=== PATIENT | female | born 1990 | race Caucasian/White ===

== ENCOUNTER 2017-01-16 15:59 | Emergency (ER) | payer BC ==
[2017-01-16 16:16] VITALS: BP 130/82
[2017-01-16] MEDS ORDERED: Acetaminophen TAB* 325 MG PO ONE (16:37)
--- NOTE | 2017-01-16 17:01 | UC ---
FLU HPI - HPI Summary HPI Summary: YESTERDAY BEGAN HAVING FEVER CHILLS BODY ACHES, SINUS CONGESTION FATIGUE - History of Current Complaint Chief Complaint: UCRespiratory Stated Complaint: COUGH,CONGESTION Time Seen by Provider: 01/16/17 16:18 Hx Obtained From: Patient, Family/[employer]inter Hx Last Menstrual Period: 01/08/17 Onset/Duration: Sudden Onset, Lasting Days, Still Present Severity Currently: Mild Severity Initially: Mild Associated Signs & Symptoms: Positive: Fever, T Max, Myalgia, Cough, Nasal Congestion - Allergy/Home Medications Allergies/Adverse Reactions: Allergies Allergy/AdvReac Type Severity Reaction Status Date / Time Sulfa Antibiotics Allergy Severe Anaphylatic Verified 01/16/17 16:08 Shock Home Medications: Home Medications Ibuprofen TAB* [Advil TAB*] 400 mg PO Q6H PRN 01/16/17 [History Confirmed ] PMH/Surg Hx/FS Hx/Imm Hx Previously Healthy: Yes Respiratory History Of: Reports: Asthma - HX A CHILD - Surgical History Surgical History: Yes Surgery Procedure, Year, and Place: t/a, 5 ear surgeries between right and left, - Family History Known Family History: Positive: Hypertension - Social History Occupation: Employed Full-time Lives: With Family Alcohol Use: None Substance Use Type: Marijuana Substance Use Comment - Amount & Last Used: OCCASIONAL Smoking Status (MU): Heavy Every Day Tobacco Smoker Type: Cigarettes Amount Used/How Often: 1/2 ppd Length of Time of Smoking/Using Tobacco: 3 year Have You Smoked in the Last Year: Yes Household Exposure Type: Cigarettes Cessation Counseling: Counseled 3+Min - 10 Min - Immunization History Most Recent Influenza Vaccination: FALL 2015 Review of Systems Constitutional: Fever, Chills, Fatigue Skin: Negative Eyes: Negative ENT: Sore Throat, Nasal Discharge Respiratory: Cough Cardiovascular: Negative Genitourinary: Negative Motor: Negative Neurovascular: Negative Musculoskeletal: Myalgia Neurological: Negative Psychological: Negative All Other Systems Reviewed And Are Negative: Yes Physical Exam Triage Information Reviewed: Yes Appearance: No Pain Distress, Well-Nourished, Ill-Appearing Vital Signs: Initial Vital Signs Temp 102.4 F 01/16/17 16:09 Pulse 97 01/16/17 16:09 Resp 20 01/16/17 16:09 BP 130/82 01/16/17 16:09 Pulse Ox 130 01/16/17 16:09 Vital Signs Reviewed: Yes ENT: Positive: Normal ENT inspection, Hearing grossly normal, Pharynx normal, TM dull Dental Exam: Normal Neck exam: Normal Neck: Positive: Supple, Nontender Respiratory Exam: Normal Respiratory: Positive: Chest non-tender, Lungs clear, Normal breath sounds, No respiratory distress, No accessory muscle use Cardiovascular Exam: Normal Cardiovascular: Positive: RRR, No Murmur Abdominal Exam: Normal Abdomen Description: Positive: Nontender, No Organomegaly Musculoskeletal Exam: Normal Musculoskeletal: Positive: Strength Intact, ROM Intact Neurological Exam: Normal Psychological Exam: Normal Psychological: Positive: Normal Response To Family Skin Exam: Normal Flu Course/Dx - Differential Dx/Diagnosis Differential Diagnosis/HQI/PQRI: Upper Respiratory Infection Provider Diagnoses: INFLUENZA Discharge - Discharge Plan Condition: Stable Disposition: HOME Prescriptions: Oseltamivir CAP* [Tamiflu CAP*] 75 mg PO BID #10 cap Patient Education Materials: Influenza (ED) Forms: *Work Release Referrals: [facility] [Outside] No Primary Care Phys,NOPCP [Primary Care Provider] -
== END 2017-01-16 17:03 | disposition home or self-care (01) ==
LOC: UCCORT 15:59
DX: J11.1 Influenza due to unidentified influenza virus with other respiratory manifestations (principal); Z88.2 Allergy status to sulfonamides; F17.210 Nicotine dependence, cigarettes, uncomplicated; Z71.6 Tobacco abuse counseling
CPT/HCPCS: 87502; 99212; A9270-GY; G0463

== ENCOUNTER 2018-03-02 08:58 | Emergency (ER) | payer BC, OTHER ==
[2018-03-02 10:27] VITALS: BP 120/83
--- NOTE | 2018-03-02 11:02 | RAD ---
INDICATION: Right ankle injury. TECHNIQUE: 3 views of the right ankle were obtained. FINDINGS: Soft tissue swelling is noted along the anterolateral aspect of the ankle. No fracture is seen. Joint spaces appear maintained. IMPRESSION: SOFT TISSUE SWELLING, NO FRACTURE IS SEEN.
--- NOTE | 2018-03-02 11:04 | RAD ---
INDICATION: Right foot injury. TECHNIQUE: 3 views of the right foot were obtained. FINDINGS: There is lateral soft tissue swelling. The bones are normal alignment. No fracture is seen. Joint spaces appear maintained. IMPRESSION: SOFT TISSUE SWELLING, NO FRACTURE IS SEEN. IF THE PATIENT'S SYMPTOMS PERSIST RECOMMEND FOLLOW-UP IMAGING.
[2018-03-02] MEDS ORDERED: Acetaminophen TAB* 325 MG PO ONE (11:22)
--- NOTE | 2018-03-02 11:24 | UC ---
Lower Extremity/Ankle HPI - HPI Summary HPI Summary: ROLLED r ANKLE ON UNEVEN SIDEWALK 3 DAYS AGO. C/O PAIN TO ANKLE AND SWELLING TO ANKLE AND FOOT. - History of Current Complaint Chief Complaint: UCLowerExtremity Stated Complaint: RT FOOT INJURY Time Seen by Provider: 03/02/18 11:18 Hx Obtained From: Patient Hx Last Menstrual Period: beinning of January Onset/Duration: Sudden Onset Pain Intensity: 0 Aggravating Factor(s): Standing, Ambulation Alleviating Factor(s): Rest Able to Bear Weight: Yes - Risk Factors Septic Arthritis Risk Factor: Negative - Allergies/Home Medications Allergies/Adverse Reactions: Allergies Allergy/AdvReac Type Severity Reaction Status Date / Time Sulfa (Sulfonamide Allergy Swelling Verified 03/02/18 10:28 Antibiotics) Of Face,Lips,& Throat PMH/Surg Hx/FS Hx/Imm Hx Previously Healthy: Yes - Surgical History Surgical History: Yes Surgery Procedure, Year, and Place: t/a, 5 ear surgeries between right and left, - Family History Known Family History: Positive: Hypertension - Social History Occupation: Unemployed Lives: With Family Alcohol Use: Occasionally Substance Use Type: Marijuana Substance Use Comment - Amount & Last Used: OCCASIONAL-last use one month ago Smoking Status (MU): Light Every Day Tobacco Smoker Type: Cigarettes Amount Used/How Often: 1/2 ppd Length of Time of Smoking/Using Tobacco: 3 year Have You Smoked in the Last Year: Yes Household Exposure Type: Cigarettes - Immunization History Most Recent Influenza Vaccination: FALL 2015 Vaccination Up to Date: Yes Review of Systems Constitutional: Negative Skin: Negative Eyes: Negative ENT: Negative Respiratory: Negative Cardiovascular: Negative Gastrointestinal: Negative Genitourinary: Negative Motor: Negative Neurovascular: Negative Musculoskeletal: Other: - pIAN r ANKLE, SWELLING r ANKLE/FOOT Neurological: Negative Psychological: Negative Is Patient Immunocompromised?: No All Other Systems Reviewed And Are Negative: Yes Physical Exam Triage Information Reviewed: Yes Appearance: Well-Appearing Vital Signs: Initial Vital Signs Temp 98.4 F 03/02/18 10:14 Pulse 78 03/02/18 10:14 Resp 18 03/02/18 10:14 BP 120/83 03/02/18 10:14 Pulse Ox 100 03/02/18 10:14 Eyes: Positive: Conjunctiva Clear ENT: Positive: Normal ENT inspection Neck: Positive: Supple, Nontender, No Lymphadenopathy Respiratory: Positive: Lungs clear, Normal breath sounds Cardiovascular: Positive: RRR, No Murmur Abdomen Description: Positive: Nontender, No Organomegaly, Soft Bowel Sounds: Positive: Present Musculoskeletal: Positive: Other: - RLE: hip, knee, achilles are atraumatic. lateral ankle with mild swelling and tenderness. foot with mild swelling but non tender and gross s/v/m to foot is intact. Neurological: Positive: Alert Psychological: Positive: Age Appropriate Behavior Skin Exam: Normal Diagnostics - Radiology No standard instances Xray Interpretation: Positive (See Comments) - sts but no fx's(see reports) Radiology Interpretation Completed By: Radiologist Lower Extremity Course/Dx - Course Course Of Treatment: no fx's, dislocations or concern for infection - Differential Dx/Diagnosis Provider Diagnoses: Sprain R ankle Discharge - Sign-Out/Discharge Documenting (check all that apply): Discharge/Admit/Transfer - Discharge Plan Condition: Stable Disposition: HOME Patient Education Materials: Ankle Sprain (ED) Referrals: Rocky Moon MD [Medical Doctor] - 7 Days Additional Instructions: LIO, SPLINT AND USE YOUR CRUTCHES UNTIL CLEARED. - Billing Disposition and Condition Condition: STABLE Disposition: HOME
== END 2018-03-02 11:38 | disposition home or self-care (01) ==
LOC: UCCORT 08:58
DX: S93.401A Sprain of unspecified ligament of right ankle, initial encounter (principal); X50.0XXA Overexertion from strenuous movement or load, initial encounter; Y92.9 Unspecified place or not applicable; F17.210 Nicotine dependence, cigarettes, uncomplicated; Z88.2 Allergy status to sulfonamides
CPT/HCPCS: 99213; A9270-GY; G0463

== ENCOUNTER 2018-05-01 11:26 | Emergency (ER) | payer MEDICAID, OTHER ==
[2018-05-01 11:33] VITALS: BP 121/86
--- NOTE | 2018-05-01 11:47 | UC ---
Dental HPI - HPI Summary HPI Summary: has broken L lower molar that is painful and now jaw getting swollen. has DDS appoint in [place] next week - History of Current Complaint Chief Complaint: UCDentalProblem Stated Complaint: DENTAL COMPLAINT Time Seen by Provider: 05/01/18 11:45 Hx Obtained From: Patient Hx Last Menstrual Period: beinning of January ?: No Onset/Duration: Gradual Onset Severity: Severe Pain Intensity: 7 Aggravating Factor(s): Heat, Cold, Chewing Alleviating Factor(s): Nothing - Allergies/Home Medications Allergies/Adverse Reactions: Allergies Allergy/AdvReac Type Severity Reaction Status Date / Time Sulfa (Sulfonamide Allergy Swelling Verified 05/01/18 11:33 Antibiotics) Of Face,Lips,& Throat PMH/Surg Hx/FS Hx/Imm Hx Previously Healthy: Yes - Surgical History Surgical History: Yes Surgery Procedure, Year, and Place: t/a, 5 ear surgeries between right and left, - Family History Known Family History: Positive: Hypertension - Social History Occupation: Unemployed Lives: With Family Alcohol Use: Occasionally Substance Use Type: None Substance Use Comment - Amount & Last Used: OCCASIONAL-last use one month ago Smoking Status (MU): Current Some Day Smoker Type: Cigarettes Amount Used/How Often: 1/2 ppd Length of Time of Smoking/Using Tobacco: 3 year Have You Smoked in the Last Year: Yes Household Exposure Type: Cigarettes Cessation Counseling: Patient Advised to Stop - Immunization History Most Recent Influenza Vaccination: FALL 2015 Vaccination Up to Date: Yes Review of Systems Constitutional: Negative ENT: Dental Pain Respiratory: Negative Cardiovascular: Negative Neurological: Negative Psychological: Negative All Other Systems Reviewed And Are Negative: Yes Physical Exam Triage Information Reviewed: Yes Appearance: Well-Appearing, Well-Nourished, Obese Vital Signs: Initial Vital Signs Temp 97.8 F 05/01/18 11:29 Pulse 98 05/01/18 11:29 Resp 18 05/01/18 11:29 BP 121/86 05/01/18 11:29 Pulse Ox 98 05/01/18 11:29 Vital Signs Reviewed: Yes ENT: Positive: Dental tenderness - obvious dental decay L lower molars, minor erythema and swelling gum and cheek, no drainage Dental: Positive: Gross Decay/Caries @ Neck exam: Normal Neck: Positive: Supple, Nontender, No Lymphadenopathy Respiratory Exam: Normal Cardiovascular Exam: Normal Neurological Exam: Normal Psychological Exam: Normal Dental Complaint Course/Dx - Course Course Of Treatment: iStop Reference #: [id number] - Differential Dx/Diagnosis Differential Diagnosis/Dx: Dental Abscess, Dental Caries, Fractured Tooth Provider Diagnoses: dental abscess Discharge - Sign-Out/Discharge Documenting (check all that apply): Discharge/Admit/Transfer - Discharge Plan Condition: Good Disposition: HOME Prescriptions: Ibuprofen TAB* [Motrin TAB* 800 MG] 800 mg PO Q6H #40 tab Penicillin VK TAB* [Penicillin VK 250 mg Tab*] 250 mg PO QID #40 tab Patient Education Materials: Toothache (ED) Referrals: No Primary Care Phys,NOPCP [Primary Care Provider] - Additional Instructions: follow-up with dentist as scheduled next week take medications as directed - Billing Disposition and Condition Condition: GOOD Disposition: Home
== END 2018-05-01 12:06 | disposition home or self-care (01) ==
LOC: UCEAST 11:26
DX: K04.7 Periapical abscess without sinus (principal); F17.210 Nicotine dependence, cigarettes, uncomplicated; Z88.2 Allergy status to sulfonamides
CPT/HCPCS: 99212; G0463

== ENCOUNTER 2020-02-07 09:33 | Emergency (ER) | payer OTHER ==
[2020-02-07 11:01] VITALS: BP 122/82
[2020-02-07] MEDS ORDERED: Naproxen TAB* 250 MG PO ONE (11:02)
--- NOTE | 2020-02-07 11:25 | UC ---
Dental HPI - HPI Summary HPI Summary: 29-year-old female presents with right upper dental pain for approximately one week. States she has attempted to schedule a dentist appointment but has been unsuccessful. States she has developed a "bubble" of the gum at the base of her tooth. Denies fever, chills, facial swelling, drainage, dysphagia, or trismus. - History of Current Complaint Chief Complaint: UCDentalProblem Stated Complaint: DENTAL Time Seen by Provider: 02/07/20 10:42 Hx Obtained From: Patient Hx Last Menstrual Period: 01/31/20 Pain Intensity: 9 - Allergies/Home Medications Allergies/Adverse Reactions: Allergies Allergy/AdvReac Type Severity Reaction Status Date / Time Sulfa (Sulfonamide Allergy Swelling Verified 02/07/20 10:54 Antibiotics) Of Face,Lips,& Throat Home Medications: Home Medications Amoxicillin/Clavulanate TAB* [Augmentin TAB 875*] 875 mg PO BID 10 Days #20 tab 02/07/20 [Rx] Hydrocodone/Acetaminophen [Hydrocodone-Acetamin 5-325 mg] 1 each PO Q8HR PRN #6 tablet MDD 3 02/07/20 [Rx] Ibuprofen TAB* [Motrin TAB* 600 MG] 600 mg PO Q6H PRN #30 tab 02/07/20 [Rx] PMH/Surg Hx/FS Hx/Imm Hx Previously Healthy: Yes - denies significant past medical history Other History Of: Negative For: Anticoagulant Therapy - Surgical History Surgical History: Yes Surgery Procedure, Year, and Place: t/a, 5 ear surgeries between right and left, - Family History Known Family History: Positive: Hypertension - Social History Occupation: Unemployed Lives: With Family Alcohol Use: None Substance Use Type: None Substance Use Comment - Amount & Last Used: OCCASIONAL-last use one month ago (? ) Smoking Status (MU): Current Every Day Smoker Type: Cigarettes Amount Used/How Often: 1/2 PPD Length of Time of Smoking/Using Tobacco: 3 year Have You Smoked in the Last Year: Yes Household Exposure Type: Cigarettes - Immunization History Most Recent Influenza Vaccination: FALL 2015 Vaccination Up to Date: Yes Review of Systems All Other Systems Reviewed And Are Negative: Yes Constitutional: Negative: Fever, Chills ENT: Positive: Dental Pain. Negative: Sore Throat, Nasal Discharge, Sinus Congestion, Sinus Pain/Tenderness Respiratory: Positive: Negative Cardiovascular: Positive: Negative Gastrointestinal: Positive: Negative Genitourinary: Positive: Negative Musculoskeletal: Positive: Negative Neurological/Mental Status: Positive: Negative Is Patient Immunocompromised?: No Physical Exam - Summary Physical Exam Summary: GENERAL APPEARANCE: Alert and cooperative obese adult female who appears to be in no acute distress. HEAD: Atraumatic. Normocephalic. No facial swelling. EYES: Conjunctiva clear. No drainage. EARS: External auditory canals and tympanic membranes clear, hearing grossly intact. NOSE: No nasal discharge. THROAT: Pharynx normal. Tonsils surgically absent. Uvula midline. Teeth and gingiva in overall poor condition with multiple teeth with caries and decay. Significant dental decay of the the right upper 1st molar with dental fracture. Gingival erythema with mild induration at the base of the tooth. No fluctuance, drainage, or trismus. NECK: Neck supple, non-tender without lymphadenopathy. CARDIAC: Normal S1 and S2. No S3, S4 or murmurs. Rhythm is regular. There is no peripheral edema, cyanosis or pallor. Extremities are warm and well perfused. Capillary refill is less than 2 seconds. Peripheral pulses intact. LUNGS: Clear to auscultation without rales, rhonchi, wheezing or diminished breath sounds. ABDOMEN: Positive bowel sounds. Soft, nondistended, nontender. No guarding or rebound. No masses or hepatosplenomegally. MUSKULOSKELETAL: ROM intact to all extremities. No joint erythema or tenderness. Normal muscular development. Normal gait. SKIN: Skin normal color, texture and turgor with no lesions or eruptions. Triage Information Reviewed: Yes Vital Signs: Initial Vital Signs Temp 99.9 F 02/07/20 10:55 Pulse 67 02/07/20 10:55 Resp 18 02/07/20 10:55 BP 122/82 02/07/20 10:55 Pulse Ox 99 02/07/20 10:55 Vital Signs Reviewed: Yes Dental Complaint Course/Dx - Course Course Of Treatment: 29-year-old female presents with right upper dental pain for approximately one week. States she has attempted to schedule a dentist appointment but has been unsuccessful. States she has developed a "bubble" of the gum at the base of her tooth. Denies fever, chills, facial swelling, drainage, dysphagia, or trismus. Afebrile. Vital signs stable. Patient was noted to have overall poor dentition with multiple teeth with caries and decay. There was significant dental decay of the the right upper 1st molar with dental fracture and gingival erythema with mild induration at the base of the tooth. No fluctuance, drainage , or trismus. Remainder of exam was unremarkable. Patient was given naproxen 500 mg PO for pain. Will treat patient for a likely early dental abscess with Augmentin 875 mg twice a day 10 days as well as provide her with prescriptions for ibuprofen 600 mg every 6-8 hours as needed for pain and a very short-term course of hydrocodoneacetaminophen 5 mg/325 mg 1 tablet every 8 hours as needed for severe pain. She is to follow-up with a dentist at the next available appointment. Anticipatory guidance and warning symptoms are reviewed with patient. Verbalizes understanding and agrees with plan of care. - Differential Dx/Diagnosis Differential Diagnosis/Dx: Dental Abscess, Dental Caries, Fractured Tooth, Gingivitis, Charlie's Angina, Odontogenic Pain, Peridontic Disease Provider Diagnosis: Dental abscess Discharge ED - Sign-Out/Discharge Documenting (check all that apply): Patient Departure All imaging exams completed and their final reports reviewed: No Studies - Discharge Plan Condition: Stable Disposition: HOME Prescriptions: Amoxicillin/Clavulanate TAB* [Augmentin TAB 875*] 875 mg PO BID 10 Days #20 tab Hydrocodone/Acetaminophen [Hydrocodone-Acetamin 5-325 mg] 1 each PO Q8HR PRN #6 tablet MDD 3 PRN Reason: Pain - Severe Ibuprofen TAB* [Motrin TAB* 600 MG] 600 mg PO Q6H PRN #30 tab PRN Reason: Pain - Mild Patient Education Materials: Dental Abscess (ED) Referrals: No Primary Care Phys,NOPCP [Primary Care Provider] - Additional Instructions: Start Augmentin 875 mg 1 tab twice a day for 10 days. Take with food to avoid upset stomach. Sure to complete the entire course even if feeling better. Take ibuprofen 600 mg 1 tablet every 6-8 hours as needed for pain. You were given a dose of naproxen in the clinic at around 11:00 which is very similar to ibuprofen therefore do not take ibuprofen for another 12 hours. Take hydrocodone-acetaminophen 5 mg/325 mg 1 tab every 8 hours as needed for severe pain. Be sure to rinse your mouth out with a warm salt water solution after every time you eat to remove any debris. Make an appointment with your dentist at next available appointment. Seek immediate medical attention in the emergency room if you develop fever greater than 100.5 F, you are unable to open of close your mouth, are unable to swallow, have difficulty breathing, or any worsening of symptoms. - Billing Disposition and Condition Condition: STABLE Disposition: Home
== END 2020-02-07 11:36 | disposition home or self-care (01) ==
LOC: UCEAST 09:33
DX: K04.7 Periapical abscess without sinus (principal); K02.9 Dental caries, unspecified; Z88.2 Allergy status to sulfonamides
CPT/HCPCS: 99211; A9270-GY; G0463